=== PATIENT | male | born 1985 | race Caucasian/White ===

== ENCOUNTER 2020-10-23 16:58 | Emergency (ER) | payer OTHER ==
[2020-10-23 18:44] LABS: HEMOGLOBIN 14.6 gm/dl (14.0-17.5); RED BLOOD COUNT 5.03 M/UL (4.20-5.50); WHITE BLOOD COUNT 12.3 K/UL (4.5-11.0)
[2020-10-23 19:09] LABS: BUN/CREATININE RATIO 18 (0-10)
[2020-10-23] MEDS ORDERED: TORADOL 10 MG T10 MG PO (19:52)
[2020-10-23] MEDS ORDERED: CYCLOBENZAPRINE10 MG PO (19:52)
== END 2020-10-23 20:15 | disposition home or self-care (01) ==
LOC: ER1 16:58
PROVIDERS: Physician Assistant
DX: M25.512 Pain in left shoulder (principal); E11.9 Type 2 diabetes mellitus without complications; I10 Essential (primary) hypertension; Z79.899 Other long term (current) drug therapy
CPT/HCPCS: 36415; 71045; 80048; 82550; 82553; 83874; 84484; 85025; 93005; 96374; 99284; J1885

== ENCOUNTER 2021-02-08 17:05 | Emergency (ER) | payer OTHER ==
[~2021-02-08 17:05] MED LIST: CYCLOBENZAPRINE10 MG PO; TORADOL 10 MG T10 MG PO
== END 2021-02-08 18:16 | disposition home or self-care (01) ==
LOC: ER1 17:05
DX: L72.3 Sebaceous cyst (principal); I10 Essential (primary) hypertension; E11.9 Type 2 diabetes mellitus without complications
CPT/HCPCS: 99283